=== PATIENT | male | born 1950 | race Caucasian/White ===

== ENCOUNTER 2020-08-19 09:16 | Emergency (ER) | payer MEDICARE, OTHER ==
[~2020-08-19] VITALS: Ht 180.3 cm; Wt 121.2 kg
--- NOTE | 2020-08-19 09:29 | NUR ---
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
[2020-08-19 10:03] LABS: BASOPHILS % (AUTO) 0 % (0-1); EOSINOPHILS % (AUTO) 1 % (1-7); LYMPHOCYTES % (AUTO) 22 % (22-44); MEAN CORPUSCULAR HGB CONC 34.4 g/dL (33.2-36.2); MONOCYTES % (AUTO) 7 % (2-9); NEUTROPHILS % (AUTO) 70 % (42-75); PLATELET COUNT 177 x10^3/uL (130-400); RED BLOOD COUNT 4.93 x10^6/uL (4.38-5.82)
[2020-08-19 10:06] LABS: MD NO
[2020-08-19 10:14] LABS: ALBUMIN 3.7 g/dL (3.4-5.0); ANION GAP 7 mmol/L (5-15); CALCIUM 9.8 mg/dL (8.5-10.1); CHLORIDE 104 mmol/L (98-107); CREATININE 1.47 mg/dL (0.7-1.3)
[2020-08-19 10:35] VITALS: BP 96/67
--- NOTE | 2020-08-19 10:36 | NUR ---
Patient is resting comfortably in bed. Vital Signs within normal limits.
--- NOTE | 2020-08-19 10:53 | NUR ---
PT AMBULATED TO BR INDEPENDENTLY AND BTB. MONITOR IN PLACE. NO OTHER NEEDS.
[2020-08-19] MEDS ORDERED: APIXABAN 5 MG TABLET ONE (11:52)
[2020-08-19 11:59] LABS: TROPONIN I < 0.015 ng/mL (0.000-0.045)
[2020-08-19] MEDS ORDERED: METOPROLOL SUCCINATE 25 MG TAB.ER.24H PO ONE (12:00)
[2020-08-19] MEDS ORDERED: APIXABAN 5 MG TABLET PO ONE (12:00)
== END 2020-08-19 12:32 | disposition home or self-care (01) ==
LOC: ED 11:57
DX: I48.92 Unspecified atrial flutter (principal); R07.89 Other chest pain; R00.0 Tachycardia, unspecified
CPT/HCPCS: 36415; 71045; 80048; 82040; 84443; 84484; 85025; 93005; 99285

== ENCOUNTER → 2020-09-18 | Outpatient (CLI) | payer MEDICARE | END | disposition home or self-care (01) | LOC: CVU 14:36 | PROVIDERS: ATTEND Internal Medicine Cardiovascular Disease | DX: I08.8 Other rheumatic multiple valve diseases (principal); I10 Essential (primary) hypertension; I48.91 Unspecified atrial fibrillation | CPT/HCPCS: C8929; Q9957 ==

== ENCOUNTER 2020-09-22 12:11 | Outpatient (CLI) | payer MEDICARE ==
[~2020-09-22 12:11] MED LIST: REGADENOSON 0.4 MG/5 ML SYRINGE ONE
== END 2020-09-22 23:59 | disposition home or self-care (01) ==
LOC: CFH 12:11
PROVIDERS: ATTEND Internal Medicine Cardiovascular Disease
DX: I48.92 Unspecified atrial flutter (principal); I48.91 Unspecified atrial fibrillation; I10 Essential (primary) hypertension
CPT/HCPCS: 78452; 93017; A9502; J2785

== ENCOUNTER 2020-10-03 06:16 | Day surgery (SDC) | payer MEDICARE ==
[~2020-10-03] VITALS: Ht 180.3 cm; Wt 120.5 kg
[2020-10-03] MEDS ORDERED: PIOG45TA64 PO (06:50)
[2020-10-03] MEDS ORDERED: APIX5TAB PO (06:50)
[2020-10-03] MEDS ORDERED: METF500T17 PO (06:50)
[2020-10-03] MEDS ORDERED: METO25TA91 PO (06:50)
[2020-10-03] MEDS ORDERED: LISI-167 PO (06:50)
[2020-10-03] MEDS ORDERED: ALLO100T30 PO (06:50)
[2020-10-03] MEDS ORDERED: PRAV80TA2 PO (06:50)
[2020-10-03 06:54] VITALS: BP 127/80
[2020-10-03] MEDS ORDERED: SODIUM CHLORIDE 0.9% 500 ML IV PRN (07:00)
[2020-10-03 07:27] LABS: CALCIUM 9.1 mg/dL (8.5-10.1); CREATININE 1.54 mg/dL (0.7-1.3)
[2020-10-03 07:38] LABS: ANION GAP 4 mmol/L (5-15); CHLORIDE 110 mmol/L (98-107)
[2020-10-03] MEDS ORDERED: ACETAMINOPHEN 325 MG TABLET ONE (07:49)
[2020-10-03] MEDS ORDERED: PROPOFOL 10 MG/ML, 20ML ONE (09:49)
== END 2020-10-03 09:00 | disposition home or self-care (01) ==
LOC: CACL 06:16
PROVIDERS: ATTEND Internal Medicine Cardiovascular Disease
DX: I48.92 Unspecified atrial flutter (principal); I48.91 Unspecified atrial fibrillation; I49.3 Ventricular premature depolarization; E11.22 Type 2 diabetes mellitus with diabetic chronic kidney disease; I12.9 Hypertensive chronic kidney disease with stage 1 through stage 4 chronic kidney disease, or unspecified chronic kidney disease; N18.9 Chronic kidney disease, unspecified; J45.909 Unspecified asthma, uncomplicated; E78.2 Mixed hyperlipidemia; M10.9 Gout, unspecified; G47.33 Obstructive sleep apnea (adult) (pediatric); E66.9 Obesity, unspecified; Z68.38 Body mass index [BMI] 38.0-38.9, adult; Z79.01 Long term (current) use of anticoagulants; Z79.84 Long term (current) use of oral hypoglycemic drugs; Z79.899 Other long term (current) drug therapy
CPT/HCPCS: 36415; 80048; 92960; 93005; J2704